=== PATIENT | female | born 1995 | race Caucasian/White ===

== ENCOUNTER 2024-06-13 04:07 | Emergency (ER) | payer OTHER ==
[2024-06-13] MEDS ORDERED: Hydrocortisone 1% Cream 30 GM TUBE TOP SCH (04:45)
== END 2024-06-13 04:57 | disposition home or self-care (01) ==
LOC: CSHERS 04:07
DX: L20.9 Atopic dermatitis, unspecified (principal)
CPT/HCPCS: 99282